=== PATIENT | female | born 1960 | race Caucasian/White ===

== ENCOUNTER → 2017-03-10 12:33 | Outpatient (CLI) | payer OTHER | END | disposition home or self-care (01) | LOC: D.CT 12:33 | DX: J32.9 Chronic sinusitis, unspecified (principal); R51 Headache ==

== ENCOUNTER → 2018-11-01 12:55 | Outpatient (CLI) | payer OTHER | END | disposition home or self-care (01) | LOC: D.US 12:55 | PROVIDERS: ATTEND Family Medicine | DX: R10.2 Pelvic and perineal pain (principal) ==